=== PATIENT | male | born 1970 | race Caucasian/White ===

== ENCOUNTER 2016-07-13 20:01 | Emergency (ER) | payer OTHER ==
[2016-07-13] MEDS ORDERED: KETOROLAC 60 MG/2 ML VIAL IM ONE (21:28)
== END 2016-07-14 00:38 | disposition home or self-care (01) ==
LOC: ER 20:01
DX: M25.462 Effusion, left knee (principal)
CPT/HCPCS: 36415; 84550; 85025; 85652; 86141; 93971; 96372

== ENCOUNTER 2016-07-17 07:26 | Emergency (ER) | payer OTHER ==
[2016-07-17] MEDS ORDERED: KETOROLAC 60 MG/2 ML VIAL IM ONE (08:17)
[2016-07-17] MEDS ORDERED: DILAUDID 1 MG/ML AMP ONE (08:39)
== END 2016-07-17 09:05 | disposition home or self-care (01) ==
LOC: ER 07:26
DX: M13.172 Monoarthritis, not elsewhere classified, left ankle and foot (principal); M10.9 Gout, unspecified
CPT/HCPCS: 96372